=== PATIENT | female | born 1970 | race Caucasian/White ===

== ENCOUNTER 2017-05-28 09:22 | Emergency (ER) | payer SELFPAY ==
[~2017-05-28] VITALS: Ht 167.6 cm; Wt 113.4 kg
[~2017-05-28 09:22] MED LIST: NAPR500T PO; OXYC-323 PO; TAMS0.4C97 PO
[2017-05-28] MEDS ORDERED: NAPROXEN 500 MG TABLET PO STA (09:40)
[2017-05-28] MEDS ORDERED: CYCLOBENZAPRINE 10 MG TABLET. PO ONE (09:45)
[2017-05-28] MEDS ORDERED: HYDROcodone/APAP 5/325MG 1 TAB TABLET PO ONE (09:45)
[2017-05-28 10:05] LABS: BILIRUBIN,URINE NEGATIVE (NEG); GLUCOSE,URINE NEGATIVE (NEG); NITRITE,URINE NEGATIVE (NEG); PROTEIN,URINE NEGATIVE (NEG-TRACE); UROBILINOGEN,URINE 0.2 mg/dL (0.2 mg/dL)
--- NOTE | 2017-05-28 10:05 | PHYS DOC ---
Past Medical History Past Medical History: No Pertinent History Past Surgical History: Hysterectomy, Tubal ligation Alcohol Use: None Drug Use: Marijuana Adult General Chief Complaint Chief Complaint: BACK PAIN OR INJURY HPI HPI Patient is a 47 year old female with no significant medical history who presents today with moderate right flank/righ pain that began one and a half weeks ago after lifting a car seat. Patient states originally the pain began on the low back and has gone to her right flank/rib region. Patient denies any trauma. Patient states the pain is worse on movement. She is requesting x-rays of her back. Patient denies any urinary symptoms. Review of Systems Review of Systems Constitutional: Denies fever or chills [] Eyes: Denies change in visual acuity, redness, or eye pain [] HENT: Denies nasal congestion or sore throat [] Respiratory: Right rib pain Cardiovascular: No additional information not addressed in HPI [] GI: Denies abdominal pain, nausea, vomiting, bloody stools or diarrhea [] : Denies dysuria or hematuria [] Musculoskeletal: Right flank pain. Integument: Denies rash or skin lesions [] Neurologic: Denies headache, focal weakness or sensory changes [] Current Medications Current Medications Current Medications Medications (Trade) Dose Ordered Sig/Juliet Start Time Stop Time Status Last Admin Dose Admin Acetaminophen/ Hydrocodone Bitart (Lortab 5/325) 1 tab 1X ONCE 05/28/17 09:45 05/28/17 09:46 DC 05/28/17 10:06 1 TAB Cyclobenzaprine HCl (Flexeril) 10 mg 1X ONCE 05/28/17 09:45 05/28/17 09:46 DC 05/28/17 10:06 10 MG Naproxen (Naprosyn) 500 mg 1X STAT 05/28/17 09:40 05/28/17 09:44 DC 05/28/17 10:06 500 MG Allergies Allergies Allergies Coded Allergies Type Severity Reaction Last Updated Verified No Known Drug Allergies 05/28/17 No Physical Exam Physical Exam Constitutional: Well developed, well nourished, no acute distress, non-toxic appearance. [] HENT: Normocephalic, atraumatic, bilateral external ears normal, oropharynx moist, no oral exudates, nose normal. [] Eyes: PERRLA, EOMI, conjunctiva normal, no discharge. [] Neck: Normal range of motion, no tenderness, supple, no stridor. [] Cardiovascular:Heart rate regular rhythm, no murmur [] Lungs & Thorax: Bilateral breath sounds clear to auscultation [] Abdomen: Bowel sounds normal, soft, no tenderness, no masses, no pulsatile masses. [] Skin: Warm, dry, no erythema, no rash. [] Back: Mild right flank tenderness as well as tenderness to posterior right lower ribs approximately ribs 9-11 no midline tenderness, no CVA tenderness. [] Extremities: No tenderness, no cyanosis, no clubbing, ROM intact, no edema. [] Neurologic: Alert and oriented X 3, normal motor function, normal sensory function, no focal deficits noted. [] Psychologic: Affect normal, judgement normal, mood normal. [] Current Patient Data Vital Signs Vital Signs Date Time Temp Pulse Resp B/P (MAP) Pulse Ox O2 Delivery O2 Flow Rate FiO2 05/28/17 10:06 18 98 Room Air 05/28/17 09:25 98.2 74 184/95 (124) 98.2 Lab Values Laboratory Tests Test 05/28/17 09:45 Urine Collection Type Unknown Urine Color Yellow Urine Clarity Clear Urine pH 7.0 Urine Specific [place] 1.020 Urine Protein Negative mg/dL (NEG-TRACE) Urine Glucose (UA) Negative mg/dL (NEG) Urine Ketones (Stick) Negative mg/dL (NEG) Urine Blood Negative (NEG) Urine Nitrite Negative (NEG) Urine Bilirubin Negative (NEG) Urine Urobilinogen Dipstick 0.2 mg/dL (0.2 mg/dL) Urine Leukocyte Esterase Negative (NEG) Urine RBC Rare /HPF (0-2) Urine WBC Rare /HPF (0-4) Urine Squamous Epithelial Cells Few /LPF Urine Bacteria Few /HPF (0-FEW) EKG EKG [] Radiology/Procedures Radiology/Procedures []PROCEDURE: LUMBAR SPINE 2-3V; THORACIC SPINE 3V Thoracic spine, 3 views, 05/28/2017: History: Back pain The thoracic vertebral heights are well-maintained. There are mild scattered marginal spurs. There is a mild left convexity upper thoracic scoliosis. The paraspinous soft tissues are unremarkable. IMPRESSION: 1. Mild scattered degenerative changes. 2. No acute bony abnormality is detected. Lumbar spine, 3 views, 05/28/2017: History: Low back pain The lumbar vertebral heights are well-maintained. There is mild disc space narrowing and endplate sclerosis at L5-S1. There are minimal scattered marginal spurs. There are moderate hypertrophic degenerative changes involving the facet joints bilaterally in the lower lumbar spine. Minimal aortic calcific plaquing is present. IMPRESSION: 1. Mild to moderate scattered degenerative changes as described above. 2. No acute bony abnormality is detected. DICTATED and SIGNED BY: JENNIFER HALL MD DATE: 05/28/17 1011 CC: BECKY ALFORD APRN; NO PCP; NON,STAFF ~ Course & Med Decision Making Course & Med Decision Making Pertinent Labs and Imaging studies reviewed. (See chart for details) This is a 47-year-old female patient who presents today ED today with moderate right radial/flank pain that began one and a half weeks ago after lifting a car seat. Patient's x-rays of the lumbar spine and thoracic spine were negative for any acute findings but noted for arthritis. Urine analysis is negative for infection. Patient likely has a muscle strain. Given instructions to apply heat to the affected area. Discharged with Ultram, Robaxin and Medrol Dosepak. Follow -up with her PCP in 1-2 weeks. Dragon Disclaimer Dragon Disclaimer This electronic medical record was generated, in whole or in part, using a voice recognition dictation system. Departure Departure Impression: Primary Impression: Flank strain Additional Impressions: Degenerative arthritis of thoracic spine DJD (degenerative joint disease), lumbar Disposition: 01 HOME, SELF-CARE Condition: STABLE Referrals: NO PCP (PCP) follow up with your doctor in one week Patient Instructions: Arthritis, Nonspecific, [id number], Muscle Strain, Easy -to-Read Additional Instructions: You were seen for muscle strain as well as arthritis. Thoracic and lumbar spine. Apply heat to the affected areas. Avoid lifting anything heavier than a gallon of milk for 2 weeks. Take the prescribed medicines as ordered. Follow-up with your doctor in 1-2 weeks. Scripts Methylprednisolone (MEDROL) 4 Mg Tab.ds.pk 1 PKG PO UD, #1 PKG Prov: BECKY ALFORD APRN 05/28/17 Methocarbamol (ROBAXIN) 500 Mg Tablet 1 TAB PO BID, #60 TAB Prov: BECKY ALFORD APRN 05/28/17 Tramadol Hcl (ULTRAM) 50 Mg Tablet 1 TAB PO Q6HRS, #30 TAB Prov: BECKY ALFORD BOBTAIL DRIVER 05/28/17 Problem Qualifiers Primary Impression: Flank strain Encounter type: initial encounter Qualified Codes: S39.011A - Strain of muscle, fascia and tendon of abdomen, initial encounter Additional Impressions: Degenerative arthritis of thoracic spine Spinal osteoarthritis complication: unspecified spinal osteoarthritis Qualified Codes: M47.814 - Spondylosis without myelopathy or radiculopathy, thoracic region DJD (degenerative joint disease), lumbar Spinal osteoarthritis complication: unspecified spinal osteoarthritis Qualified Codes: M47.816 - Spondylosis without myelopathy or radiculopathy, lumbar region BECKY ALFORD BOBTAIL DRIVER May 28, 2017 10:05
--- NOTE | 2017-05-28 10:18 | RAD ---
Thoracic spine, 3 views, 05/28/2017: History: Back pain The thoracic vertebral heights are well-maintained. There are mild scattered marginal spurs. There is a mild left convexity upper thoracic scoliosis. The paraspinous soft tissues are unremarkable. IMPRESSION: 1. Mild scattered degenerative changes. 2. No acute bony abnormality is detected. Lumbar spine, 3 views, 05/28/2017: History: Low back pain The lumbar vertebral heights are well-maintained. There is mild disc space narrowing and endplate sclerosis at L5-S1. There are minimal scattered marginal spurs. There are moderate hypertrophic degenerative changes involving the facet joints bilaterally in the lower lumbar spine. Minimal aortic calcific plaquing is present. IMPRESSION: 1. Mild to moderate scattered degenerative changes as described above. 2. No acute bony abnormality is detected.
[2017-05-28 10:19] LABS: BACTERIA,URINE FEW /HPF (0-FEW); RBC,URINE RARE /HPF (0-2); SQUAMOUS EPITHELIAL CELL,UR FEW /LPF; WBC,URINE RARE /HPF (0-4)
[2017-05-28 10:30] VITALS: BP 167/96
[2017-05-28] MEDS ORDERED: TRAM-48 PO (10:51)
[2017-05-28] MEDS ORDERED: METH-37 PO (10:51)
[2017-05-28] MEDS ORDERED: METH4TAB2 PO (10:51)
== END 2017-05-28 10:52 | disposition home or self-care (01) ==
LOC: ER 09:22
DX: S39.012A Strain of muscle, fascia and tendon of lower back, initial encounter (principal); M47.814 Spondylosis without myelopathy or radiculopathy, thoracic region; M47.816 Spondylosis without myelopathy or radiculopathy, lumbar region; Z90.710 Acquired absence of both cervix and uterus; X58.XXXA Exposure to other specified factors, initial encounter; Y93.89 Activity, other specified; Y92.89 Other specified places as the place of occurrence of the external cause; Y99.8 Other external cause status
CPT/HCPCS: 72072; 72100; 81001; 99285

== ENCOUNTER 2017-06-05 18:44 | Emergency (ER) | payer SELFPAY ==
[~2017-06-05] VITALS: Ht 170.2 cm; Wt 113.4 kg
[~2017-06-05 18:44] MED LIST changes: +METH-37 PO; +METH4TAB2 PO; +TRAM-48 PO
[2017-06-05] MEDS ORDERED: ONDANSETRON PF 4 MG/2 ML VIAL. IV ONE (19:30)
[2017-06-05] MEDS ORDERED: KETOROLAC 15 MG/ML VIAL. IV ONE (19:30)
[2017-06-05] MEDS ORDERED: IV NORMAL SALINE 1000ML BAG 1,000 ML IV ONE (19:30)
[2017-06-05 19:39] LABS: BILIRUBIN,URINE NEGATIVE (NEG); GLUCOSE,URINE NEGATIVE (NEG); NITRITE,URINE NEGATIVE (NEG); PROTEIN,URINE NEGATIVE (NEG-TRACE); UROBILINOGEN,URINE 0.2 mg/dL (0.2 mg/dL)
[2017-06-05 19:39] LABS: BASO # 0.1 x10^3/uL (0.0-0.2); BASO % 1 % (0-3); EOS % 2 % (0-3); HEMOGLOBIN 15.5 g/dL (12.0-15.5); LYMPH # 4.6 x10^3/uL (1.0-4.8); LYMPH % 44 % (24-48); MEAN CORPUSCULAR HEMOGLOBIN 31 pg (25-35); MEAN CORPUSCULAR HGB CONC 34 g/dL (31-37); MEAN CORPUSCULAR VOLUME 91 fL (79-100); MONO % 6 % (0-9); NEUT % 47 % (31-73); PLATELET COUNT 245 x10^3/uL (140-400); RED BLOOD COUNT 5.07 x10^6/uL (3.50-5.40); RED CELL DISTRIBUTION WIDTH 13.5 % (11.5-14.5); WHITE BLOOD COUNT 10.6 x10^3/uL (4.0-11.0)
[2017-06-05 19:49] LABS: BACTERIA,URINE FEW /HPF (0-FEW); RBC,URINE 0 /HPF (0-2); SQUAMOUS EPITHELIAL CELL,UR FEW /LPF
[2017-06-05 19:52] LABS: CALCIUM 9.5 mg/dL (8.5-10.1); CREATININE 0.6 mg/dL (0.6-1.0); GFR 106.3; POTASSIUM 3.7 mmol/L (3.5-5.1)
[2017-06-05 19:57] LABS: ALBUMIN 4.1 g/dL (3.4-5.0); ALBUMIN/GLOBULIN RATIO 1.2 (1.0-1.7); TOTAL BILIRUBIN 0.4 mg/dL (0.2-1.0); TOTAL PROTEIN 7.4 g/dL (6.4-8.2)
--- NOTE | 2017-06-05 20:33 | RAD ---
INDICATION: Right upper quadrant and flank pain for 2 weeks. Symptoms are worse postprandial. TECHNIQUE: Right upper quadrant ultrasound was performed. FINDINGS: Visualized pancreas is unremarkable. IVC is patent. Liver is increased in echogenicity and in size, right hepatic lobe 19.6 cm in length. Gallbladder wall is borderline thickened at 3 mm. There is no stone. There is no pericholecystic fluid. However, sonographic Aleman sign is positive. Common bile duct diameter of 6 mm is upper limits of normal for age. Right kidney is without hydronephrosis or mass. IMPRESSION: 1. Gallbladder wall thickness is upper limits of normal. Sonographic Aleman sign is reported as positive. If there is concern for acalculous cholecystitis, consider hepatobiliary scintigraphy. 2. Fatty infiltration of an enlarged liver. Electronically signed by: Luis Hoyos MD (06/05/2017 8:30 PM) [employer]
[2017-06-05] MEDS ORDERED: ONDA4TAB10 SL (21:24)
[2017-06-05] MEDS ORDERED: HYOS0.1265 SL (21:24)
--- NOTE | 2017-06-05 21:24 | PHYS DOC ---
Past Medical History Past Medical History: No Pertinent History Past Surgical History: Hysterectomy, Tubal ligation Alcohol Use: None Drug Use: Marijuana Adult General Chief Complaint Chief Complaint: FLANK PAIN HPI HPI Patient is a 47 year old female who presents to the ER today complaining of right upper quadrant pain and flank discomfort that's been going on for several days now. Patient reports that she was seen and evaluated here in the ER couple days ago was diagnosed with lower back pain. Patient reports that she didn't we will search and her symptoms are more consistent with a gallstone and gallbladder problems so she presents here today requesting an ultrasound of her gallbladder. Patient reports that she been nauseous but no vomiting or diarrhea. Patient pressure less by mouth intake was approximately a couple hours ago which caused the pain to come back. Patient has a dysuria frequency or urgency. Patient has any hematuria. Patient reports that the pain is colicky in nature. Patient denies any chest pain or short of breath. Patient has any calf tenderness. Patient has any history of PE or DVT in the past. Patient reports she's had a bilateral tubal ligation and a hysterectomy in the past. Patient denies any history of hypertension diabetes liver longer kidney problems. Patient reports she smokes tobacco and marijuana. Patient is denies any alcohol use. Patient has any chest discomfort. Patient has any hemoptysis. Patient has any shortness of breath. Patient denies any pain radiating down her arms back or jaw. Component. Patient reports that the exacerbating factors are meals. Review of systems: Constitutional: Denies fever or chills Eyes: Denies change in visual acuity, redness, or eye pain HENT: Denies nasal congestion or sore throat All other review systems are negative except as documented in the history of present illness. Physical exam: Constitutional: Well developed, well nourished, no acute distress, non-toxic appearance. HENT: Normocephalic, atraumatic, bilateral external ears normal, oropharynx moist, no oral exudates, nose normal. Eyes: PERRLA, EOMI, conjunctiva normal, no discharge. Neck: Normal range of motion, no tenderness, supple, no stridor. Cardiovascular:Heart rate regular rhythm, Lungs & Thorax: Bilateral breath sounds clear to auscultation Abdomen: Bowel sounds normal, soft, patient was tenderness to palpation to the right upper quadrant. Patient has no Aleman sign. Patient has no rebound or guarding. Patient has normal active bowel sounds. Patient does not present with any signs or symptoms of be concerning for an acute surgical abdomen., no masses , no pulsatile masses. Skin: Warm, dry, no erythema, no rash. Back: No tenderness, no CVA tenderness. Extremities: No tenderness, no cyanosis, no clubbing, ROM intact, no edema. Neurologic: Alert and oriented X 3, normal motor function, normal sensory function, no focal deficits noted. Psychologic: Affect normal, judgement normal, mood normal. Assessment and plan 47-year-old female who presents here today complaining of abdominal pain in the right upper quadrant and flank pain on the right side that she was concerned about a gallstone. Patient had a ER workup including CBC, CMP, lipase, UA which have all been unremarkable. We did an ultrasound of her gallbladder which was reported as essentially normal. Patient has gallbladder size. Patient has no peritoneal cystic fluid. Although the patient does have a sonographic Aleman's patient absolutely does not have a Aleman sign by my exam. Patient does not present with signs or symptoms consistent with acute cholecystitis and I feel that her symptoms and the ultrasound are not consistent with cholecystitis. Patient feels much improved after the Toradol and IV fluids. Patient will be discharged home to fill her prescription for tramadol that was given her a couple days ago that she did not feel as of yet, she will be given a prescription for Levsin and Zofran to assist her with her discomfort. Patient was instructed to follow-up with her primary care physician and will be given the list. Your physicians here and [facility] for follow-up. Patient is also advised to join a smoking cessation course to stop tobacco and marijuana. Current Medications Current Medications Current Medications Medications (Trade) Dose Ordered Sig/Juliet Start Time Stop Time Status Last Admin Dose Admin Ketorolac Tromethamine (Toradol) 15 mg 1X ONCE 06/05/17 19:30 06/05/17 19:31 DC 06/05/17 20:02 15 MG Ondansetron HCl (Zofran) 4 mg 1X ONCE 06/05/17 19:30 06/05/17 19:31 DC 06/05/17 20:01 4 MG Sodium Chloride 1,000 ml @ 1,000 mls/hr 1X ONCE 06/05/17 19:30 06/05/17 20:29 DC 06/05/17 20:02 1,000 MLS/HR Allergies Allergies Allergies Coded Allergies Type Severity Reaction Last Updated Verified No Known Drug Allergies 05/28/17 No Current Patient Data Vital Signs Vital Signs Date Time Temp Pulse Resp B/P (MAP) Pulse Ox O2 Delivery O2 Flow Rate FiO2 06/05/17 20:56 88 16 150/82 (104) 94 Room Air 06/05/17 19:37 98.1 98.1 Lab Values Laboratory Tests Test 06/05/17 18:53 06/05/17 19:15 Urine Collection Type Unknown Urine Color Yellow Urine Clarity Clear Urine pH 6.0 Urine Specific [place] >=1.030 Urine Protein Negative mg/dL (NEG-TRACE) Urine Glucose (UA) Negative mg/dL (NEG) Urine Ketones (Stick) Negative mg/dL (NEG) Urine Blood Negative (NEG) Urine Nitrite Negative (NEG) Urine Bilirubin Negative (NEG) Urine Urobilinogen Dipstick 0.2 mg/dL (0.2 mg/dL) Urine Leukocyte Esterase Negative (NEG) Urine RBC 0 /HPF (0-2) Urine WBC 1-4 /HPF (0-4) Urine Squamous Epithelial Cells Few /LPF Urine Bacteria Few /HPF (0-FEW) Urine Mucus Slight /LPF White Blood Count 10.6 x10^3/uL (4.0-11.0) Red Blood Count 5.07 x10^6/uL (3.50-5.40) Hemoglobin 15.5 g/dL (12.0-15.5) Hematocrit 46.0 % (36.0-47.0) Mean Corpuscular Volume 91 fL (79-100) Mean Corpuscular Hemoglobin 31 pg (25-35) Mean Corpuscular Hemoglobin Concent 34 g/dL (31-37) Red Cell Distribution Width 13.5 % (11.5-14.5) Platelet Count 245 x10^3/uL (140-400) Neutrophils (%) (Auto) 47 % (31-73) Lymphocytes (%) (Auto) 44 % (24-48) Monocytes (%) (Auto) 6 % (0-9) Eosinophils (%) (Auto) 2 % (0-3) Basophils (%) (Auto) 1 % (0-3) Neutrophils # (Auto) 5.0 x10^3uL (1.8-7.7) Lymphocytes # (Auto) 4.6 x10^3/uL (1.0-4.8) Monocytes # (Auto) 0.7 x10^3/uL (0.0-1.1) Eosinophils # (Auto) 0.2 x10^3/uL (0.0-0.7) Basophils # (Auto) 0.1 x10^3/uL (0.0-0.2) Sodium Level 141 mmol/L (136-145) Potassium Level 3.7 mmol/L (3.5-5.1) Chloride Level 104 mmol/L (98-107) Carbon Dioxide Level 29 mmol/L (21-32) Anion Gap 8 (6-14) Blood Urea Nitrogen 17 mg/dL (7-20) Creatinine 0.6 mg/dL (0.6-1.0) Estimated GFR (Cockcroft-Gault) 106.3 BUN/Creatinine Ratio 28 (6-20) H Glucose Level 90 mg/dL (70-99) Calcium Level 9.5 mg/dL (8.5-10.1) Total Bilirubin 0.4 mg/dL (0.2-1.0) Aspartate Amino Transferase (AST) 16 U/L (15-37) Alanine Aminotransferase (ALT) 29 U/L (14-59) Alkaline Phosphatase 65 U/L (46-116) Total Protein 7.4 g/dL (6.4-8.2) Albumin 4.1 g/dL (3.4-5.0) Albumin/Globulin Ratio 1.2 (1.0-1.7) Lipase 198 U/L (73-393) Laboratory Tests 06/05/17 19:15 Laboratory Tests 06/05/17 19:15 EKG EKG [] Radiology/Procedures Radiology/Procedures [] Course & Med Decision Making Course & Med Decision Making Pertinent Labs and Imaging studies reviewed. (See chart for details) [] Dragon Disclaimer Dragon Disclaimer This electronic medical record was generated, in whole or in part, using a voice recognition dictation system. Departure Departure Impression: Primary Impression: Abdominal pain Disposition: HOME, SELF-CARE Condition: IMPROVED Referrals: NO PCP (PCP) Patient Instructions: Abdominal Pain (Nonspecific) Scripts Ondansetron (ZOFRAN ODT) 4 Mg Tab.rapdis 1 TAB SL Q6HRS Y for NAUSEA, #12 TAB Prov: KARENA GARCIA MD 06/05/17 Hyoscyamine Sulfate (LEVSIN-SL) 0.125 Mg Tab.subl 0.125 MG SL Q6-8HRS Y for abdominal cramps, #10 Prov: KARENA GARCIA MD 06/05/17 KARENA GARCIA MD Jun 05, 2017 21:24
[2017-06-05 21:35] VITALS: BP 171/100
== END 2017-06-05 21:42 | disposition home or self-care (01) ==
LOC: ER 18:44
DX: R10.11 Right upper quadrant pain (principal); F17.200 Nicotine dependence, unspecified, uncomplicated; F12.10 Cannabis abuse, uncomplicated
CPT/HCPCS: 36415; 76705; 80053; 81001; 83690; 85025; 96361; 96374; 96375; 99285; J1885; J2405; J7030

== ENCOUNTER 2017-11-10 13:04 | Emergency (ER) | payer SELFPAY | END 2017-11-10 13:55 | disposition left against medical advice (07) | LOC: ER 13:55 | DX: R30.9 Painful micturition, unspecified (principal); Z53.21 Procedure and treatment not carried out due to patient leaving prior to being seen by health care provider ==

== ENCOUNTER → 2018-06-08 | Outpatient (CLI) | payer OTHER ==
[~2018-06-08] MED LIST changes: +HYOS0.1265 SL; +NAPR-683 PO; -NAPR500T PO; +ONDA4TAB10 SL
--- NOTE | 2018-06-09 13:16 | RAD ---
Examination: NM HEPATOBILIARY SCAN W PHARM History: 5.5mCi Tc99m Choletec. abdomen pain for 2 years. 8 ounces Ensure for ejection fraction kinvec not available scanned for 1 hour for EF. Comparison/Correlation: None Findings: 5.5 mCi technetium 99m Choletec was intravenously administered for purposes hepatobiliary scintigraphy. Uptake of radiotracer by liver is normal. Radiotracer is seen in the gallbladder at 15 minutes and in the small bowel at 20 minutes. No biliary dilatation. At 60 minutes, 8 ounces of ensure was administered orally. Imaging was performed for 1 hour. Gallbladder ejection fraction of 49% is identified by 60 minutes. Impression: Normal hepatobiliary scintigraphy. Normal gallbladder ejection fraction. Electronically signed by: Basil Orozco MD (06/09/2018 1:12 PM) [id number]
== END | disposition home or self-care (01) ==
LOC: NM 08:59
PROVIDERS: ATTEND Family Medicine
DX: R10.84 Generalized abdominal pain (principal); Z87.891 Personal history of nicotine dependence; Z90.710 Acquired absence of both cervix and uterus
CPT/HCPCS: 78226; 96374; 96375; A9537

== ENCOUNTER → 2018-07-07 | Outpatient (CLI) | payer OTHER ==
--- NOTE | 2018-07-07 10:20 | RAD ---
AP and Lateral Views of the Chest 07/07/2018 12:00 AM Indication: Left-sided chest pain. Comparison: Chest radiograph April 23, 2014 Findings: There is a calcified granuloma left upper lobe, stable from prior exam. No pneumothorax, pleural effusion, or focal consolidative infiltrate is identified. No acute osseous changes are identified. Heart size is normal. IMPRESSION: No radiographic evidence of acute osseous abnormality Electronically signed by: Oswaldo Harvey MD (07/07/2018 10:17 AM) [id number]
--- NOTE | 2018-07-07 11:26 | RAD ---
PQRS Compliance statement: One or more of the following individualized dose reduction techniques were utilized for this examination: 1. Automated exposure control. 2. Adjustment of the mA and/or kV according to patient size. 3. Use of iterative reconstruction technique. Indication:HEMATURIA LEFT FLANK PAIN X 3 YEARS TECHNIQUE: CT abdomen and pelvis without IV contrast with multiplanar reformats. COMPARISON: 02/27/2016 FINDINGS: Limited evaluation of solid abdominal and pelvic organs due to lack of IV contrast. Heart is normal in size. No pericardial or pleural effusion. Clear lung bases. Noncontrast appearance of the spleen, gallbladder, pancreas, adrenals within normal limits. Multiple calcified granulomas are seen in the spleen. No hydronephrosis. Punctate nonobstructing left renal stone is seen. No enlarged retroperitoneal or pelvic adenopathy. No free pelvic fluid or ascites. No bowel obstruction. Normal appendix. Urinary bladder redemonstrated is no radiopaque stones. Status post hysterectomy. No suspicious bony lesion. IMPRESSION: Limited evaluation of solid abdominal and pelvic organs due to lack of IV contrast. 1. Punctate nonobstructing left renal stone. No hydronephrosis. Electronically signed by: Valente Ramsey DO (07/07/2018 11:23 AM) [facility]
--- NOTE | 2018-07-07 15:33 | RAD ---
DATE: 07/07/2018 EXAM: DIGITAL SCREEN BILAT W/CAD HISTORY: Routine screening. COMPARISON: None This study was interpreted with the benefit of Computerized Aided Detection (CAD). FINDINGS: Breast Density: SCATTERED The breast parenchyma shows scattered fibroglandular densities. Breast parenchyma level B. The skin and nipples are within normal limits. Couple of small round and oval masses are seen. The round mass in the right posterior breast measuring 3.3 mm with well-circumscribed margins most likely at 11-12:00 position approximately 13 cm from the nipple. Left posterior breast oval-shaped mass measuring 8 mm with well-circumscribed margins most likely at 1:00 position approximately 17 cm from the nipple. No Suspicious calcifications, spiculated mass or area of architectural distortion. IMPRESSION: Bilateral round and oval masses as described above. These are most likely intramammary lymph nodes. However since this is a baseline exam confirmation with ultrasound is recommended. BI-RADS CATEGORY: 0 INCOMPLETE: NEED ADDITIONAL IMAGING EVAULATION AND/OR PRIOR MAMMOGRAMS FOR COMPARISON RECOMMENDED FOLLOW-UP: ADD ADDITIONAL IMAGING. Ultrasound of the bilateral breasts at 11:00 position in the right side and 1:00 position on the left side recommended. PQRS compliance statement: Patient information was entered into a reminder system with a target due date for the next mammogram. Mammography is a sensitive method for finding small breast cancers, but it does not detect them all and is not a substitute for careful clinical examination. A negative mammogram does not negate a clinically suspicious finding and should not result in delay in biopsying a clinically suspicious abnormality. "Our facility is accredited by the [employer] Mammography [employer]."
== END | disposition home or self-care (01) ==
LOC: MAMMO 08:54
PROVIDERS: ATTEND Family Medicine
DX: Z12.31 Encounter for screening mammogram for malignant neoplasm of breast (principal); N63.11 Unspecified lump in the right breast, upper outer quadrant; N63.21 Unspecified lump in the left breast, upper outer quadrant; N20.0 Calculus of kidney; D73.89 Other diseases of spleen; R07.89 Other chest pain; Z90.710 Acquired absence of both cervix and uterus
CPT/HCPCS: 71046; 74176; 77067

== ENCOUNTER → 2018-07-16 | Outpatient (CLI) | payer OTHER ==
--- NOTE | 2018-07-16 11:13 | RAD ---
Bilateral breast ultrasound, 07/16/2018: History: Abnormal screening mammogram The screening mammograms demonstrated benign-appearing lymph node type densities in the upper outer quadrants of both breasts. We performed a targeted ultrasound exam of these regions. On the right, at the 11:30 location approximately 13 cm from the nipple there is a 3 mm smooth nodule with an echogenic hilum. The appearance is compatible with a benign intramammary lymph node. This corresponds in size to the mammographic finding. No other abnormality was seen in the right breast in this region. On the left, at the 1:00 location approximately 17 cm from the nipple there is a 9 x 4 x 5 mm hypoechoic nodule. It also demonstrates smooth margins and an echogenic hilum. The appearance is compatible with a benign intramammary lymph node. This appears to correspond to the mammographic abnormality. No other abnormality was seen in this portion of the left breast. IMPRESSION: Benign-appearing bilateral intramammary lymph nodes. Routine yearly mammographic follow-up is suggested. BI-RADS 2-benign findings
== END | disposition home or self-care (01) ==
LOC: US 10:15
PROVIDERS: ATTEND Family Medicine
DX: N63.21 Unspecified lump in the left breast, upper outer quadrant (principal); N63.11 Unspecified lump in the right breast, upper outer quadrant
CPT/HCPCS: 76641

== ENCOUNTER → 2020-11-27 | Outpatient (CLI) | payer OTHER ==
[~2020-11-27] MED LIST changes: -OXYC-323 PO; +OXYC1TAB15 PO
--- NOTE | 2020-11-27 10:11 | KCIC ---
Bilateral digital screening mammograms: Reason for examination: Routine screening. Comparison is made to previous study dated 07/07/2018. Interpretation is made with the benefit of CAD. The skin and nipples show no abnormalities. No abnormal lymph nodes are seen. The breast parenchyma i s predominantly fatty. (Breast density: Category A.) There are small nodules consistent with intramam harsh lymph nodes which are stable. There are no new dominant masses, suspicious calcifications or arc hitectural distortions. Impression: No evidence of malignancy. Recommend routine screening. BI-RADS Category 2: Benign. "Our facility is accredited by the [employer] Mammography Program." This patient's information has been entered into a reminder system for the patient to be notified wit h the results of her examination and a target date for the next mammogram. Electronically signed by: Malini Figueroa MD (11/27/2020 10:09 AM) [id number]
--- NOTE | 2020-11-27 11:50 | KCIC ---
XR HAND_RIGHT 2 VIEWS History: CHRONIC PAIN RT POINTER FINGER, TURNS PURPLE WHEN COLD, NO INJURY Comparison: None. Technique: 2 views the right hand. Findings: There is no evidence for fracture. Alignment is normal. No destructive osseous lesions are seen. Mild degenerative changes of the interphalangeal joints. Small well-corticated calcific density the r adial aspect of the thumb interphalangeal joint likely represents sequela of old injury, as does well -corticated ossific density at the ulnar styloid. Mild degenerative changes at the thumb CMC. Soft tissues are normal. Impression: 1. Mild degenerative/posttraumatic changes of the right hand without acute osseous abnormality. Electronically signed by: Sourav Linares MD (11/27/2020 11:48 AM) [facility]
== END ==
LOC: KCIC MAMMO 08:47
PROVIDERS: ATTEND Family Medicine
DX: Z12.31 Encounter for screening mammogram for malignant neoplasm of breast (principal); M19.041 Primary osteoarthritis, right hand; G89.29 Other chronic pain
CPT/HCPCS: 73120; 77067